=== PATIENT | female | born 1965 | race African-American/Black ===

== ENCOUNTER 2017-10-27 19:19 | Emergency (ER) | payer SELFPAY ==
[~2017-10-27] VITALS: Ht 170.2 cm; Wt 85.0 kg
[2017-10-27 19:21] VITALS: BP 137/83; PULSE 88; RESP 16; TEMP 98.7; O2SAT 100
--- NOTE | 2017-10-27 19:58 | PD ---
HPI Chief Complaint: Syncope/Near-Syncope Time Seen by Provider: 19:57 Travel History International Travel<30 days: No Contact w/Intl Traveler<30days: No Traveled to known affect area: No History of Present Illness HPI 52-year-old female history of hypertension presents to the emergency department for evaluation of a syncopal episode that occurred last evening. Patient states that she "passed out" in the shower, striking her head. Patient states she had been drinking alcohol, it was hot, and she does not hydrate well yesterday prior to this. Patient currently reports posterior headache. Intermittent sensation of lightheadedness. She has had no nausea or vomiting. No focal deficits or weakness. No chest pain or tightness. Patient has no other symptoms reported. [facility] Past Medical History Hypertension: Yes Immunizations Current: Yes Tetanus Vaccination: < 5 Years Influenza Vaccination: Yes ?: Not Social History Alcohol Use: Yes (occ) Tobacco Use: No Substance Use: No Allergies-Medications (Allergen,Severity, Reaction): Coded Allergies: prednisone (Verified Allergy, Severe, Arrhythmias, 10/27/17) Reported Meds & Prescriptions Reported Meds & Active Scripts Active Reported Zyrtec (Cetirizine HCl) 10 Mg Capsule Potassium Chloride ER (Potassium Chloride) 20 Meq Tab 20 Meq PO DAILY Lisinopril 10 Mg Tab 10 Mg PO DAILY Hydrochlorothiazide 25 Mg Tab 25 Mg PO DAILY Review of Systems Except as stated in HPI: all other systems reviewed are Neg Physical Exam Narrative GENERAL: Well-nourished female patient, ambulatory without difficulty, in no acute distress. SKIN: Warm and dry. HEAD: Tenderness elicited palpation on posterior scalp Normocephalic. EYES: Pupils equal and round. No scleral icterus. No injection or drainage. ENT: No nasal bleeding or discharge. Mucous membranes pink and moist. NECK: Trachea midline. No JVD. No cervical spine tenderness. CARDIOVASCULAR: Regular rate and rhythm. RESPIRATORY: No accessory muscle use. Clear to auscultation. Breath sounds equal bilaterally. GASTROINTESTINAL: Abdomen soft, non-tender, nondistended. Hepatic and splenic margins not palpable. MUSCULOSKELETAL: Extremities without clubbing, cyanosis, or edema. No obvious deformities. NEUROLOGICAL: Awake and alert. No obvious cranial nerve deficits. Motor grossly within normal limits. Five out of 5 muscle strength in the arms and legs. Normal speech. PSYCHIATRIC: Appropriate mood and affect; insight and judgment normal. Data Data Last Documented VS Vital Signs Date Time Temp Pulse Resp B/P (MAP) Pulse Ox O2 Delivery O2 Flow Rate FiO2 10/27/17 21:39 10/27/17 20:13 88 16 91 16 85 16 10/27/17 19:21 98.7 100 Room Air Orders Orders Ct Brain W/O Iv Contrast(Rout) (10/27/17 ) Electrocardiogram (10/27/17 20:08) Basic Metabolic Panel (Bmp) (10/27/17 20:08) Complete Blood Count With Diff (10/27/17 20:08) Ckmb (Isoenzyme) Profile (10/27/17 20:08) Troponin I (10/27/17 20:08) Act Partial Throm Time (Ptt) (10/27/17 20:08) Prothrombin Time / Inr (Pt) (10/27/17 20:08) Urinalysis - C+S If Indicated (10/27/17 20:08) Ecg Monitoring (10/27/17 20:08) Iv Access Insert/Monitor (10/27/17 20:08) Oximetry (10/27/17 20:08) Ondansetron Inj (Zofran Inj) (10/27/17 20:15) Sodium Chloride 0.9% Flush (Ns Flush) (10/27/17 20:15) Sodium Chlor 0.9% 1000 Ml Inj (Ns 1000 M (10/27/17 20:08) Potassium Chloride (Kcl) (10/27/17 21:00) Ed Discharge Order (10/27/17 21:14) Labs Laboratory Tests Test 10/27/17 20:15 White Blood Count 8.6 TH/MM3 Red Blood Count 4.94 MIL/MM3 Hemoglobin 14.0 GM/DL Hematocrit 40.4 % Mean Corpuscular Volume 81.7 FL Mean Corpuscular Hemoglobin 28.2 PG Mean Corpuscular Hemoglobin Concent 34.6 % Red Cell Distribution Width 13.9 % Platelet Count 235 TH/MM3 Mean Platelet Volume 9.0 FL Neutrophils (%) (Auto) 69.6 % Lymphocytes (%) (Auto) 22.5 % Monocytes (%) (Auto) 6.5 % Eosinophils (%) (Auto) 0.8 % Basophils (%) (Auto) 0.6 % Neutrophils # (Auto) 6.0 TH/MM3 Lymphocytes # (Auto) 1.9 TH/MM3 Monocytes # (Auto) 0.6 TH/MM3 Eosinophils # (Auto) 0.1 TH/MM3 Basophils # (Auto) 0.1 TH/MM3 CBC Comment DIFF FINAL Differential Comment Prothrombin Time 10.7 SEC Prothromb Time International Ratio 1.0 RATIO Activated Partial Thromboplast Time 24.5 SEC Urine Color LIGHT-YELLOW Urine Turbidity CLEAR Urine pH 5.5 Urine Specific Clemons 1.007 Urine Protein NEG mg/dL Urine Glucose (UA) NEG mg/dL Urine Ketones NEG mg/dL Urine Occult Blood NEG Urine Nitrite NEG Urine Bilirubin NEG Urine Urobilinogen LESS THAN 2.0 MG/DL Urine Leukocyte Esterase TRACE Urine RBC 1 /hpf Urine WBC 1 /hpf Urine Squamous Epithelial Cells <1 /hpf Urine Mucus FEW /lpf Microscopic Urinalysis Comment CULT NOT INDICATED Blood Urea Nitrogen 8 MG/DL Creatinine 0.69 MG/DL Random Glucose 100 MG/DL Calcium Level 9.2 MG/DL Sodium Level 139 MEQ/L Potassium Level 3.2 MEQ/L Chloride Level 104 MEQ/L Carbon Dioxide Level 28.0 MEQ/L Anion Gap 7 MEQ/L Estimat Glomerular Filtration Rate 108 ML/MIN Total Creatine Kinase 93 U/L Troponin I LESS THAN 0.02 NG/ML MDM Medical Decision Making Medical Screen Exam Complete: Yes Emergency Medical Condition: Yes Medical Record Reviewed: Yes Differential Diagnosis Minor head injury versus intracranial hemorrhage versus cluster headache versus migraine headache versus electric abnormality versus cardiac etiology Narrative Course 52-year-old female presents to department for evaluation. Patient appears without distress. Neuro exam is nonfocal. EKG is without acute abnormality. Laboratory Tests Test 10/27/17 20:15 White Blood Count 8.6 TH/MM3 Red Blood Count 4.94 MIL/MM3 Hemoglobin 14.0 GM/DL Hematocrit 40.4 % Mean Corpuscular Volume 81.7 FL Mean Corpuscular Hemoglobin 28.2 PG Mean Corpuscular Hemoglobin Concent 34.6 % Red Cell Distribution Width 13.9 % Platelet Count 235 TH/MM3 Mean Platelet Volume 9.0 FL Neutrophils (%) (Auto) 69.6 % Lymphocytes (%) (Auto) 22.5 % Monocytes (%) (Auto) 6.5 % Eosinophils (%) (Auto) 0.8 % Basophils (%) (Auto) 0.6 % Neutrophils # (Auto) 6.0 TH/MM3 Lymphocytes # (Auto) 1.9 TH/MM3 Monocytes # (Auto) 0.6 TH/MM3 Eosinophils # (Auto) 0.1 TH/MM3 Basophils # (Auto) 0.1 TH/MM3 CBC Comment DIFF FINAL Differential Comment Prothrombin Time 10.7 SEC Prothromb Time International Ratio 1.0 RATIO Activated Partial Thromboplast Time 24.5 SEC Urine Color LIGHT-YELLOW Urine Turbidity CLEAR Urine pH 5.5 Urine Specific Clemons 1.007 Urine Protein NEG mg/dL Urine Glucose (UA) NEG mg/dL Urine Ketones NEG mg/dL Urine Occult Blood NEG Urine Nitrite NEG Urine Bilirubin NEG Urine Urobilinogen LESS THAN 2.0 MG/DL Urine Leukocyte Esterase TRACE Urine RBC 1 /hpf Urine WBC 1 /hpf Urine Squamous Epithelial Cells <1 /hpf Urine Mucus FEW /lpf Microscopic Urinalysis Comment CULT NOT INDICATED Blood Urea Nitrogen 8 MG/DL Creatinine 0.69 MG/DL Random Glucose 100 MG/DL Calcium Level 9.2 MG/DL Sodium Level 139 MEQ/L Potassium Level 3.2 MEQ/L Chloride Level 104 MEQ/L Carbon Dioxide Level 28.0 MEQ/L Anion Gap 7 MEQ/L Estimat Glomerular Filtration Rate 108 ML/MIN Total Creatine Kinase 93 U/L Troponin I LESS THAN 0.02 NG/ML CT angiogram is complete.1. No acute intracranial abnormalities. Scalp hematoma posteriorly near the vertex. I discussed the patient maintain physician. We have offered observation admission to the patient who wishes to go home. She agrees to return immediately with any acute worsening symptoms. Diagnosis Primary Impression: Syncope Qualified Codes: R55 - Syncope and collapse Additional Impression: Head injury Qualified Codes: S09.90XA - Unspecified injury of head, initial encounter Referrals: Primary Care Physician Patient Instructions: Concussion (ED), General Instructions, Syncope (ED) Additional Instructions: Maintain adequate oral hydration Follow-up with a primary care provider Return immediately with any acute worsening of symptoms Med/Other Pt SpecificInfo: No Change to Meds Disposition: 01 DISCHARGE HOME Condition: Stable Luisa Vila Oct 27, 2017 19:58
[2017-10-27] MEDS ORDERED: LISI10TA3 PO (20:01)
[2017-10-27] MEDS ORDERED: HYDR25TA5 PO (20:01)
[2017-10-27] MEDS ORDERED: POTA-163 PO (20:01)
[2017-10-27] MEDS ORDERED: CETI10CA3 (20:01)
[2017-10-27] MEDS ORDERED: SODIUM CHLOR 0.9% 1000 ML INJ 1,000 ML IV ONE (20:08)
[2017-10-27 20:13] VITALS: BP_SYST 137; BP_SYST 147; BP_SYST 155; BP_DIAS 75; BP_DIAS 78; BP_DIAS 88; RESP 16
[2017-10-27] MEDS ORDERED: ONDANSETRON HCL 4 MG/2 ML VIAL IVP ONE (20:15)
[2017-10-27] MEDS ORDERED: SODIUM CHLORIDE 0.9% FLUSH 10 ML FLUSH IVF PRN (20:15)
[2017-10-27 20:34] LABS: BLOOD, URINE NEG (NEG); COMMENT (UR) CULT NOT INDICATED; CULTURE IF INDICATED CULT NOT INDICATED; GLUCOSE,URINE NEG (NEG); KETONE, URINE NEG (NEG); MUCUS URINE FEW /lpf (OCC); NITRITE,URINE NEG (NEG); PH, URINE 5.5 (5.0-8.5); SQUAMOUS EPITHELIAL CELL URINE <1 /hpf (0-5); URINE COLOR LIGHT-YELLOW (YELLW/STRAW)
[2017-10-27 20:42] LABS: BASOPHIL # 0.1 TH/MM3 (0-0.2); BASOPHIL % 0.6 % (0.0-2.0); EOSINOPHIL # 0.1 TH/MM3 (0-0.4); EOSINOPHIL % 0.8 % (0.0-4.0); HEMATOCRIT 40.4 % (35.0-46.0); HEMO FLAGS DIFF FINAL; LYMPH % 22.5 % (9.0-44.0); LYMPHOCYTE # 1.9 TH/MM3 (1.0-4.8); MEAN CELL VOLUME 81.7 FL (80.0-100.0); MEAN CORPUSCULAR HEMOGLOBIN 28.2 PG (27.0-34.0); MEAN CORPUSCULAR HGB CONC 34.6 % (32.0-36.0); MONO % 6.5 % (0.0-8.0); NEUT % 69.6 % (16.0-70.0); PLATELET COUNT 235 TH/MM3 (150-450); RED BLOOD COUNT 4.94 MIL/MM3 (4.00-5.30); RED CELL DISTRIBUTION WIDTH 13.9 % (11.6-17.2); WHITE BLOOD COUNT 8.6 TH/MM3 (4.0-11.0)
--- NOTE | 2017-10-27 20:45 | RADRPT ---
EXAM DATE/TIME: 10/27/2017 20:20 [place] COMPARISON: No previous studies available for comparison. INDICATIONS : Trauma; fall following syncopal episode. RADIATION DOSE: 56.35 CTDIvol (mGy) MEDICAL HISTORY : Hypertension. SURGICAL HISTORY : None. ENCOUNTER: Initial ACUITY: 1 day PAIN SCALE: 5/10 LOCATION: cranial TECHNIQUE: Multiple contiguous axial images were obtained of the head. Using automated exposure control and adj ustment of the mA and/or kV according to patient size, radiation dose was kept as low as reasonably a chievable to obtain optimal diagnostic quality images. DICOM format image data is available electro nically for review and comparison. FINDINGS: CEREBRUM: The ventricles are normal for age. No evidence of midline shift, mass lesion, hemorrhage or acute in farction. No extra-axial fluid collections are seen. POSTERIOR FOSSA: The cerebellum and brainstem are intact. The 4th ventricle is midline. The cerebellopontine angle i s unremarkable. EXTRACRANIAL: The visualized portion of the orbits is intact. SKULL: The calvaria is intact. No evidence of skull fracture. CONCLUSION: 1. No acute intracranial abnormalities. Scalp hematoma posteriorly near the vertex. Arthur Oswald MD on October 27, 2017 at 20:39 Board Certified Radiologist. This report was verified electronically.
[2017-10-27 20:49] LABS: APTT (PATIENT) 24.5 SEC (24.3-30.1); PROTHROMBIN TIME - PATIENT 10.7 SEC (9.8-11.6)
[2017-10-27 20:51] LABS: ANION GAP 7 MEQ/L (5-15); BLOOD UREA NITROGEN 8 MG/DL (7-18); CHLORIDE 104 MEQ/L (98-107); GLOMERULAR FILTRATION RATE 108 ML/MIN (>89); POTASSIUM 3.2 MEQ/L (3.5-5.1); SODIUM (NA) 139 MEQ/L (136-145)
[2017-10-27 20:55] LABS: CREATINE KINASE 93 U/L (26-192)
[2017-10-27] MEDS ORDERED: POTASSIUM CHLORIDE 10 MEQ CONTROLLED RELEASE TAB PO ONE (21:00)
--- NOTE | 2017-10-28 07:04 | EKG ---
Date Performed: 10/27/2017 Time Performed: 20:10:52 PTAGE: 52 years EKG: Sinus rhythm POSSIBLE LEFT ATRIAL ENLARGEMENT NONSPECIFIC ST & T-WAVE ABNORMALITY BORDERLINE ECG NO PREVIOUS TRACING DOCTOR: Russell Hutchinson Interpretating Date/Time 10/28/2017 07:02:51
== END 2017-10-27 21:40 | disposition home or self-care (01) ==
LOC: NEPE 19:19
DX: S00.03XA Contusion of scalp, initial encounter (principal); R55 Syncope and collapse; I10 Essential (primary) hypertension
CPT/HCPCS: 70450; 80048; 81001; 82550; 84484; 85025; 85610; 85730; 93005; 96361; 96374; 99285; J2405; J7030